=== PATIENT | female | born 1965 | race Two or more races ===

== ENCOUNTER 2016-11-27 21:13 | Emergency (ER) | payer BC ==
[2016-11-27] MEDS ORDERED: NO HOME MEDICATION XX (23:42)
[2016-11-28] MEDS ORDERED: VISTARIL25 M1 PO (02:26)
[2016-11-28] MEDS ORDERED: DELTASONE20 MG PO (02:26)
== END 2016-11-28 02:33 ==
LOC: EDMED 21:13
DX: T78.40XA Allergy, unspecified, initial encounter (principal)
CPT/HCPCS: J2930